=== PATIENT | female | born 1940 | race Caucasian/White ===

== ENCOUNTER → 2016-12-23 | Outpatient (CLI) | payer MEDICARE, OTHER ==
[~2016-12-23] MED LIST: BNZ40T PO; DILT180T7 PO
--- NOTE | 2016-12-29 12:59 | Diagnostic Imaging Report ---
Bilateral screening mammogram 2D views with tomosynthesis The current study was also evaluated with a Computer Aided Detection (CAD) system. INDICATION: Screening. No current complaints stated on the questionnaire. COMPARISON: 08/14/15 FINDINGS: The breasts are composed of scattered fibroglandular densities. There are occasional benign-appearing calcifications. Allowing for technique and positional differences, no suspicious change is seen. IMPRESSION: No significant change. ACR BI-RADS Category 2: Benign findings. Result letter will be mailed to the patient. Note: At least 10% of breast cancer is not imaged by mammography. Dictated by: Dictated on workstation # [id number]
== END ==
LOC: RAD 12:36
PROVIDERS: ATTEND Internal Medicine
DX: Z12.31 Encounter for screening mammogram for malignant neoplasm of breast (principal)
CPT/HCPCS: 77067

== ENCOUNTER → 2017-06-03 | Outpatient (CLI) | payer MEDICARE, OTHER ==
[2017-06-03] MEDS: NS 100 ML (IVPB) BAG IV ONE (09:34)
[2017-06-03] MEDS: IOHEXOL 350 MG/ML 100 ML (OMNIPAQUE 350) VIAL IV ONE (09:34)
--- NOTE | 2017-06-03 13:30 | Diagnostic Imaging Report ---
PROCEDURE: CT abdomen and pelvis with and without contrast. TECHNIQUE: Precontrast acquisitions were acquired through the abdomen and pelvis. Multiple contiguous axial images were obtained through the abdomen and pelvis after the administration of intravenous contrast. INDICATION: Nausea with abdominal pain and bloating. COMPARISON: None available. FINDINGS: Lower chest: The lung bases are clear. No pericardial or pleural effusion. Peritoneum: There is a moderate amount of abdominal ascites. No free intraperitoneal air. Liver and biliary system: There are a few scattered ill-defined peripheral enhancing lesions within the liver compatible with metastases. The largest is in the inferior left hepatic lobe along the falciform ligament measuring 2.2 x 2.9 cm. There is a large amount of portal vein thrombus within the main, right and left portal veins. The common bile duct is dilated cranial to the mass and is narrowed by the mass at the level of the pancreatic head but may not be completely obstructed. Spleen and Pancreas: There is a large hypoenhancing pancreatic head mass measuring 5.3 x 4.5 x 5.1 cm. As mentioned above, this completely occludes the portal vein and encases the entire right hepatic artery. The distal pancreas is atrophied. Spleen is normal. Adrenals: Normal. tract: The kidneys enhance normally without suspicious mass or obstruction. Urinary bladder is distended without wall thickening. Uterus is unremarkable. GI tract: Stomach is decompressed. There is an exophytic fluid and air-containing focus along the lateral margin of the second portion of duodenum which likely represents a duodenal diverticulum versus a contained perforated ulcer. An air-filled duodenal diverticulum arises from the third portion of the duodenum as well. No bowel obstruction. Vasculature and Lymph nodes: Normal caliber aorta. It is difficult to ascertain if there are narayan hepatis or upper abdominal lymph nodes due to the large size of the mass. Musculoskeletal: No concerning osseous lesion. IMPRESSION: 1. 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 This results in complete encasement of the portal vein with either tumor thrombus or portal vein thrombus involving the entire portal venous system within the liver. The mass also completely encases the right hepatic artery. 2. There are multiple metastatic lesions within the liver. 3. Large volume of abdominal ascites is present which could be malignant in nature or due to liver dysfunction from portal venous thrombosis. 4. At least partial bile duct obstruction by the pancreatic head mass. 5. There is either a loculated perforated duodenal ulcer versus an air and fluid-filled duodenal diverticulum arising from the second portion of the duodenum. The findings of pancreatic cancer with metastatic disease and portal vein thrombosis were called to Dr. Clark at 01:15 p.m. on 06/03/2017. Dictated by: Dictated on workstation # [id number]
== END ==
LOC: RAD 09:10
PROVIDERS: ATTEND Internal Medicine
DX: C25.9 Malignant neoplasm of pancreas, unspecified (principal); K76.89 Other specified diseases of liver; K83.1 Obstruction of bile duct; R18.8 Other ascites
CPT/HCPCS: 74178

== ENCOUNTER 2017-06-09 14:31 | Outpatient (RCR) | payer MEDICARE, OTHER | END 2017-09-07 | disposition home or self-care (01) | LOC: ONC 14:31 | PROVIDERS: ATTEND Internal Medicine Hematology & Oncology | DX: C78.7 Secondary malignant neoplasm of liver and intrahepatic bile duct (principal); K86.9 Disease of pancreas, unspecified; R18.8 Other ascites; K76.6 Portal hypertension; E66.9 Obesity, unspecified; Z68.30 Body mass index [BMI] 30.0-30.9, adult; Z79.899 Other long term (current) drug therapy | CPT/HCPCS: 99214 ==

== ENCOUNTER → 2017-06-14 | Outpatient (CLI) | payer MEDICARE, OTHER ==
[~2017-06-14] VITALS: Ht 160 cm; Wt 90.3 kg
[~2017-06-14] MED LIST changes: +LIDOCAINE 1% INJ 20 ML (XYLOCAINE) VIAL INJ ONE; +LIDOCAINE 1% INJ 50 ML (XYLOCAINE) VIAL ONE; +MIDAZOLAM 2 MG/2 ML (VERSED) VIAL ONE; +NS IV 1000 ML 0 ML ONE; +fentaNYL INJECTION 100 MCG/2 ML AMP ONE
[2017-06-14 07:50] VITALS: BP 136/72
[2017-06-14 08:16] LABS: HEMOGLOBIN 13.3 G/DL (11.5-16.0); RED BLOOD COUNT 4.55 10^6/uL (4.35-5.85); RED CELL DISTRIBUTION WIDTH 13.1 % (10.0-14.5); WHITE BLOOD COUNT 6.3 10^3/uL (4.3-11.0)
[2017-06-14 08:35] LABS: INR 1.1 (0.8-1.4)
--- NOTE | 2017-06-14 11:12 | Diagnostic Imaging Report ---
INDICATION: Ascites, pancreatic cancer, and liver metastasis. TECHNIQUE AND FINDINGS: After explaining the risks, benefits, and alternatives of the procedure to the patient, written consent was obtained. A preliminary CT scan was obtained for localization purposes. The patient's right abdomen was prepped and draped utilizing maximal sterile barrier technique. Local anesthesia was obtained with 2% lidocaine. A 7 Yi catheter was advanced into the peritoneal cavity. Approximately 3800 cc of ascitic fluid was removed and sent for laboratory evaluation. A followup CT scan did demonstrate a persistent rind of ascitic fluid about the liver; therefore, it was not felt safe to do liver biopsy at this time. IMPRESSION: Successful CT-guided paracentesis as described. Dictated by: Dictated on workstation # [id number]
== END ==
LOC: SDC 07:39
PROVIDERS: ATTEND Internal Medicine Hematology & Oncology
DX: K86.9 Disease of pancreas, unspecified (principal); C78.7 Secondary malignant neoplasm of liver and intrahepatic bile duct; R18.8 Other ascites; K76.6 Portal hypertension
CPT/HCPCS: 36415; 77012; 85027; 85610; 85730